=== PATIENT | female | born 1985 | race African-American/Black ===

== ENCOUNTER 2023-01-24 17:27 | Observation (INO) ==
--- NOTE | 2023-01-24 17:41 | ED Triage Note ---
Date of Service January 24, 2023 History of Present Illness This patient was briefly evaluated while in triage. An abbreviated physical exam was performed. This patient is a 37-year-old Female who presents to the ED for evaluation recently here for rash from Lamictal 01/20 taking Benadryl rash has spread, swelling in arms syncope, SOB and anorexia Physical Exam GENERAL: NAD CARDIOVASCULAR: RRR RESPIRATORY: CTA ABDOMEN: BS x 4. Nontender to palpation. SKIN:erythematous generalized rash Initial orders for labs and / or imaging were placed and patient was placed in the waiting area until a bed is available. Please see further documentation for the full ED course.
--- NOTE | 2023-01-24 18:09 | XRay Report ---
XR chest 1V not portable CLINICAL HISTORY: SOB, syncope TECHNIQUE: Single frontal radiograph of the chest was obtained. Comparison: None available at the time of this dictation. FINDINGS: No lines and tubes are seen. The cardiomediastinal silhouette is normal. The lungs are clear. No evid ence of pleural effusion or pneumothorax. IMPRESSION: No acute chest disease. ACT 112: Negative or not required by law. Electronically signed by: Ever Barnes M.D. 01/24/2023 6:08 PM
[2023-01-24 19:43] LABS: Hemoglobin 14.8 g/dl (12.0-16.0); Mean Corpuscular Hemoglobin 31.4 pg (25.0-34.0); Mean Corpuscular Hgb Conc 36.1 g/dL (32.0-36.0); Mean Corpuscular Volume 86.9 fL (80.0-100.0); Mean Platelet Volume 10.2 fL (9.4-12.4); Platelet Count 188 K/uL (130-400); RDW Coefficient of Variation 12.3 % (11.5-14.5); RDW Standard Deviation 39.2 fL (36.4-46.3); Red Blood Count 4.72 M/uL (4.20-5.40)
[2023-01-24 19:58] LABS: Pregnancy Test, Serum Negative (Negative)
[2023-01-24 20:06] LABS: Basophils # (auto) 0.04 K/uL (0.00-0.20); Basophils % (auto) 0.4 %; Eosinophils # (auto) 0.28 K/uL (0.00-0.50); Eosinophils % (auto) 3.1 %; Immature Granulocytes # (auto) 0.06 K/uL (0.01-0.20); Immature Granulocytes % (auto) 0.7 %; Lymphocytes # (auto) 1.35 K/uL (1.20-3.40); Lymphocytes % (auto) 15.2 %; Monocytes # (auto) 0.56 K/uL (0.11-0.59); Monocytes % (auto) 6.3 %; Neutrophils # (auto) 6.61 K/uL (1.40-6.50); Neutrophils % (auto) 74.3 %
[2023-01-24 20:16] LABS: Alanine Aminotransferase 448 U/L (7-52); BUN Creatinine Ratio 15.5 (10-20); Bilirubin,Total 1.2 mg/dl (0.2-1.0); Blood Urea Nitrogen 11 mg/dl (6-23); Calcium 8.2 mg/dl (8.6-10.3); Carbon Dioxide 21 mmol/L (21-32); Chloride 95 mmol/L (98-107); Creatine Kinase 185 U/L (26-192); Creatinine Clr Calc Pharmacy 117.7 ml/min; Est GFR (African American) 127.9 ml/min; Est GFR (Non-African American) 110.4 ml/min; Glucose 107 mg/dl (70-99(Fasting)); Thyroid Stimulating Hormone 2.454 uIu/ml (0.300-4.500); Total Protein 6.8 gm/dl (6.0-8.3)
[2023-01-24 20:27] LABS: Troponin I High Sensitivity 12.1 pg/ml (0-14)
--- NOTE | 2023-01-24 20:50 | Emergency Department Note ---
Impression & Plan Adverse reaction to drug, Rash, Transaminitis, Syncope ED Provider Note NAME: DIOGO WALTON AGE: 37 SEX: F : 1985 ARRIVES VIA: Walk-In INFORMANT: Patient, ED PROVIDER(S): Karl Sanabria MD CHIEF COMPLAINT: Rash MEDICAL DECISION MAKING: Patient presents due to concern for worsening rash and associated swelling of the bilateral upper extremities. This is in the setting of recently taking Lamictal which she stopped about a week ago. Next Patient is still have some itchiness. There is no current mucosal involvement and no skin sloughing. IV was established and blood was obtained patient did have ESR CRP coagulation studies as well as blood cultures. Patient was ordered IV fluids for tachycardia. Patient's daughter shows a normal white count H&H and platelet count. The patient's kidney function is unremarkable. Mild hypercalcemia at 8.2. Elevation in ALT at 448. Patient does not have evidence of any mucosal involvement but given the patient's rash and associated symptoms I did speak the on-call hospitalist service Dr. Bishop and the patient was admitted to the medicine service. Discussion w/ other healthcare providers: Dr. Bishop inpatient medicine service Prior /Outside records reviewed: none Differential diagnosis: Allergic reaction, anaphylaxis, urticaria, Smith-Peter syndrome, toxic epidermal necrolysis, erythema multiforme, contact dermatitis, cellulitis, as well as other pathologies. Diagnostics, as interpreted by me: ECG: Sinus tachycardia, rate of 139, normal intervals and axis. No ST elevations. Cardiac monitoring: An order was placed for continuous cardiac monitoring. The monitor shows a rate of 115 with tachycardic and regular rhythm. Patient was placed on pulse oximetry Medical decision rules: none Imaging studies: I informally interpreted the patient's with formal report to follow. HPI: Patient presents due to concern for rash. Patient states that she initially developed some rash in the bilateral upper extremities about a week ago was seen here and was advised to stop taking her Lamictal and was to continue Benadryl. Patient states that she had transition to Lamictal for about 1 month in duration for mood disorder and Zoloft was not helping. The patient had transition from 25-50 middle of the day that she developed a rash she had just taken 100 mg. The patient has not taken about for a week in duration. The patient states that since she was seen here in the emergency department she is had some worsening swelling and the rash has been more prevalent and coalesced. Patient did initially note that she had some associated sores in the mouth but these have since resolved. Patient denies any changes in creams detergents or anything in the diet. Patient denies any chest pains or shortness of breath. Patient also relates that she thinks she may have passed out this morning. No tongue biting or incontinence. PAST MEDICAL HISTORY: Bipolar disorder PAST SURGICAL HISTORY: No pertinent past surgical history SOCIAL HISTORY: See Below HOME MEDICATIONS: See Below ALLERGIES: See Below VITALS: See Below PHYSICAL EXAMINATION: GENERAL: NAD, non-toxic. Wearing glasses. EYE EXAM: Normal conjunctiva. PERRL, no anisocoria and EOM's grossly intact w/o pain. No chemosis. OROPHARYNX: Moist mucus membranes, grossly normal dentition. No oral lesions or sloughing of the oral mucosa NECK: Supple, no nuchal rigidity, no adenopathy, non-tender. No signs of meningismus. FROM of the neck with good chin to chest and neck extension. No stridor. LUNGS: Clear to auscultation. Normal chest wall mechanics. HEART: Tachycardic and regular, no MRG. ABDOMEN: Abdomen soft, non-tender, no masses, no rebound or guarding. BACK: No CVA TTP. SKIN: Diffuse macular confluence rash that does occasionally jaswinder, no obvious bullae or blistering, Nikolsky negative. UPPER EXTREMITIES: Upper extremities are grossly normal. LOWER EXTREMITIES: Grossly normal, no edema. NEURO EXAM: A&O x3, cranial nerves II-XII grossly intact, normal speech, moves all 4 extremities. Past Med/Surg History Social History Smoking Status: Former smoker Hx Alcohol Use: No Hx Substance Use: No Preferred Language: Azerbaijani Communication Ability: Effective Beliefs That Will Affect Care: None Current Living Situation: Alone Other Information That Helps Us Care for You: No Feels Safe at Home: Yes Safety Concerns: Feels Safe At This Time Assistive Devices: Apnea Monitor Allergies Allergies Allergy/AdvReac Type Severity Reaction Status Date / Time lamotrigine [From Lamictal] Allergy DRESS Verified 01/26/23 10:16 Home Meds Home Medications Medication Instructions Recorded Confirmed lamotrigine 100 mg tablet 100 mg PO QAM 01/24/23 01/24/23 quetiapine 25 mg tablet 25 mg PO HS 01/24/23 01/24/23 sertraline 50 mg tablet 50 mg PO QAM 01/24/23 01/24/23 Results & Data (ED) Vital Signs Vital Signs - 24 hr 01/24/23 17:38 Temperature 36.8 C Temperature Source Temporal Artery Scan Pulse Rate 138 H Respiratory Rate 18 Blood Pressure 120/81 Blood Pressure Mean 94 Pulse Oximetry 99 Oxygen Delivery Method Room Air Sepsis Recent Fever Within 48 Hours No Sepsis New/Unexplained Change in Mental Status No Sepsis Action Taken by Nursing No Action Required Home Medications Current Medication List: was personally reviewed by me Laboratory Data Attestation: I reviewed the patient's lab results. 01/28/23 04:52 01/28/23 04:52 Lab Results 01/24/23 01/24/23 01/24/23 Range/Units 19:17 21:06 21:07 WBC 8.90 (4.8-10.8) K/ul RBC 4.72 (4.20-5.40) M/uL Hgb 14.8 (12.0-16.0) g/dl Hct 41.0 (37.0-47.0) % MCV 86.9 (80.0-100.0) fL MCH 31.4 (25.0-34.0) pg MCHC 36.1 H (32.0-36.0) g/dL RDW Std Deviation 39.2 (36.4-46.3) fL RDW Coeff of Andrew 12.3 (11.5-14.5) % Plt Count 188 (130-400) K/uL MPV 10.2 (9.4-12.4) fL Immature Gran % (Auto) 0.7 % Neut % (Auto) 74.3 % Lymph % (Auto) 15.2 % [place] % (Auto) 6.3 % Eos % (Auto) 3.1 % Baso % (Auto) 0.4 % Neut # (Auto) 6.61 H (1.40-6.50) K/uL Lymph # (Auto) 1.35 (1.20-3.40) K/uL [place] # (Auto) 0.56 (0.11-0.59) K/uL Eos # (Auto) 0.28 (0.00-0.50) K/uL Baso # (Auto) 0.04 (0.00-0.20) K/uL Immature Gran # (Auto) 0.06 (0.01-0.20) K/uL ESR 18 (0-20) mm/hr PT 13.5 H (9.0-12.0) Seconds INR 1.2 H (0.9-1.1) APTT 31.5 H (21.0-31.0) Seconds PTT Ratio 1.1 Sodium TNP 127 L Potassium TNP 3.5 Chloride 95 L (98-107) mmol/L Carbon Dioxide 21 (21-32) mmol/L Anion Gap TNP BUN 11 (6-23) mg/dl Creatinine 0.71 (0.6-1.2) mg/dl Est Cr Clr Drug Dosing 117.7 ml/min Est GFR ( Amer) 127.9 ml/min Est GFR (Non-Af Amer) 110.4 ml/min BUN/Creatinine Ratio 15.5 (10-20) Glucose 107 H (70-99(Fasting)) mg/dl Lactate (0.4-2.0) mmol/L Calcium 8.2 L (8.6-10.3) mg/dl Total Bilirubin 1.2 H (0.2-1.0) mg/dl AST TNP 277 H ALT 448 H (7-52) U/L Alkaline Phosphatase TNP 71 Total Creatine Kinase 185 (26-192) U/L Troponin I High Sens 12.1 (0-14) pg/ml C-Reactive Protein 7.40 H (0-0.5) mg/dl Total Protein 6.8 (6.0-8.3) gm/dl Albumin TNP 3.4 Globulin TNP Albumin/Globulin Ratio TNP Procalcitonin 0.23 (0-0.5) ng/ml TSH 2.454 (0.300-4.500) uIu/ml HCG, Qual Negative (Negative) 01/24/23 Range/Units 22:56 WBC (4.8-10.8) K/ul RBC (4.20-5.40) M/uL Hgb (12.0-16.0) g/dl Hct (37.0-47.0) % MCV (80.0-100.0) fL MCH (25.0-34.0) pg MCHC (32.0-36.0) g/dL RDW Std Deviation (36.4-46.3) fL RDW Coeff of Andrew (11.5-14.5) % Plt Count (130-400) K/uL MPV (9.4-12.4) fL Immature Gran % (Auto) % Neut % (Auto) % Lymph % (Auto) % Kings[place] % (Auto) % Eos % (Auto) % Baso % (Auto) % Neut # (Auto) (1.40-6.50) K/uL Lymph # (Auto) (1.20-3.40) K/uL [place]bury # (Auto) (0.11-0.59) K/uL Eos # (Auto) (0.00-0.50) K/uL Baso # (Auto) (0.00-0.20) K/uL Immature Gran # (Auto) (0.01-0.20) K/uL ESR (0-20) mm/hr PT (9.0-12.0) Seconds INR (0.9-1.1) APTT (21.0-31.0) Seconds PTT Ratio Sodium Potassium Chloride (98-107) mmol/L Carbon Dioxide (21-32) mmol/L Anion Gap BUN (6-23) mg/dl Creatinine (0.6-1.2) mg/dl Est Cr Clr Drug Dosing ml/min Est GFR ( Amer) ml/min Est GFR (Non-Af Amer) ml/min BUN/Creatinine Ratio (10-20) Glucose (70-99(Fasting)) mg/dl Lactate 2.9 H* (0.4-2.0) mmol/L Calcium (8.6-10.3) mg/dl Total Bilirubin (0.2-1.0) mg/dl AST ALT (7-52) U/L Alkaline Phosphatase Total Creatine Kinase (26-192) U/L Troponin I High Sens (0-14) pg/ml C-Reactive Protein (0-0.5) mg/dl Total Protein (6.0-8.3) gm/dl Albumin Globulin Albumin/Globulin Ratio Procalcitonin (0-0.5) ng/ml TSH (0.300-4.500) uIu/ml HCG, Qual (Negative) Administered Medications Benzocaine (Benzocaine 20% (Orajel) 11.9 Gm Tube) 1 appln MT QID PRN PRN Reason: painful mouth sores Stop: 02/24/23 19:22 Last Admin: 01/25/23 20:17 Dose: 1 appln Documented By: ELROY Calcium Citrate (Calcium Citrate 950 Mg Tab) 950 mg PO PC ANITA Stop: 02/25/23 08:59 Last Admin: 01/28/23 13:01 Dose: 950 mg Documented By: Admin: 01/28/23 08:37 Dose: 950 mg Documented By: Admin: 01/27/23 17:15 Dose: 950 mg Documented By: Admin: 01/27/23 13:17 Dose: 950 mg Documented By: Admin: 01/27/23 08:44 Dose: 950 mg Documented By: Admin: 01/26/23 16:42 Dose: 950 mg Documented By: Admin: 01/26/23 13:41 Dose: 950 mg Documented By: Admin: 01/26/23 09:31 Dose: 950 mg Documented By: BETSY Heparin Sodium (Porcine) (Heparin Sod 5,000 Unit/0.5 Ml Vial) 5,000 units SQ Q12 ANITA Stop: 02/24/23 08:59 Last Admin: 01/28/23 08:37 Dose: 5,000 units Documented By: Admin: 01/27/23 20:16 Dose: 5,000 units Documented By: Admin: 01/27/23 09:34 Dose: 5,000 units Documented By: Admin: 01/26/23 20:41 Dose: 5,000 units Documented By: Admin: 01/26/23 09:31 Dose: 5,000 units Documented By: Admin: 01/25/23 20:17 Dose: 5,000 units Documented By: Admin: 01/25/23 07:57 Dose: 5,000 units Documented By: RADHA Methylprednisolone 80 mg/ (Syringe) 1.28 mls @ 1.5 mls/min IV DAILY ANITA Stop: 02/24/23 08:59 Last Admin: 01/28/23 08:38 Dose: 1.5 mls/min Documented By: Admin: 01/27/23 08:44 Dose: 1.5 mls/min Documented By: Admin: 01/26/23 09:31 Dose: 1.5 mls/min Documented By: Admin: 01/25/23 07:57 Dose: 1.5 mls/min Documented By: RADHA Magnesium Chloride (Magnesium Chloride W/Calcium 64mg Delayed Rel Tab) 64 mg PO BID ANITA Stop: 02/27/23 09:14 Last Admin: 01/28/23 09:34 Dose: 64 mg Documented By: RAFAELA Potassium Phosphate (Pot Phosphate Monobasic W/ Sod Tab) 2 tab PO QID ANITA Stop: 02/25/23 08:59 Last Admin: 01/28/23 13:01 Dose: 2 tab Documented By: Admin: 01/28/23 08:38 Dose: 2 tab Documented By: Admin: 01/27/23 20:31 Dose: 2 tab Documented By: Admin: 01/27/23 17:14 Dose: 2 tab Documented By: Admin: 01/27/23 13:17 Dose: 2 tab Documented By: Admin: 01/27/23 08:44 Dose: 2 tab Documented By: Admin: 01/26/23 20:34 Dose: 2 tab Documented By: Admin: 01/26/23 16:42 Dose: 2 tab Documented By: Admin: 01/26/23 13:42 Dose: 2 tab Documented By: Admin: 01/26/23 11:25 Dose: 2 tab Documented By: BETSY Sertraline HCl (Sertraline Hcl 50 Mg Tablet) 25 mg PO QAM [facility] Stop: 02/25/23 10:14 Last Admin: 01/28/23 08:36 Dose: 25 mg Documented By: Admin: 01/27/23 08:43 Dose: 25 mg Documented By: Admin: 01/26/23 11:25 Dose: 25 mg Documented By: BETSY Discontinued Medications Sodium Chloride (Nss) 1,000 mls @ 999 mls/hr IV .Q1H1M ONE Stop: 01/24/23 23:53 Last Infusion: 01/25/23 02:00 Dose: Infused Documented By: Admin: 01/24/23 23:00 Dose: 999 mls/hr Documented By: NICHOL Sodium Chloride (Nss) 500 mls @ 999 mls/hr IV .Q31M ONE Stop: 01/24/23 23:23 Last Infusion: 01/25/23 03:26 Dose: Infused Documented By: Infusion: 01/25/23 02:58 Dose: 999 mls/hr Documented By: Infusion: 01/25/23 02:20 Dose: 0 mls/hr Documented By: Admin: 01/25/23 02:17 Dose: 999 mls/hr Documented By: ELROY Sodium Chloride (Nss) 1,000 mls @ 125 mls/hr IV .Q8H ANITA Stop: 02/24/23 02:09 Last Infusion: 01/27/23 10:29 Dose: Infused Documented By: Admin: 01/27/23 08:45 Dose: 125 mls/hr Documented By: Infusion: 01/27/23 08:37 Dose: Infused Documented By: Admin: 01/27/23 00:37 Dose: 125 mls/hr Documented By: Infusion: 01/27/23 00:37 Dose: Infused Documented By: Admin: 01/26/23 16:41 Dose: 125 mls/hr Documented By: Infusion: 01/26/23 16:40 Dose: Infused Documented By: Admin: 01/26/23 08:34 Dose: 125 mls/hr Documented By: Infusion: 01/26/23 08:32 Dose: Infused Documented By: Admin: 01/26/23 00:15 Dose: 125 mls/hr Documented By: Infusion: 01/26/23 00:15 Dose: Infused Documented By: Admin: 01/25/23 16:36 Dose: 125 mls/hr Documented By: Infusion: 01/25/23 16:36 Dose: Infused Documented By: Admin: 01/25/23 09:42 Dose: 125 mls/hr Documented By: Infusion: 01/25/23 09:42 Dose: Infused Documented By: Admin: 01/25/23 03:25 Dose: 125 mls/hr Documented By: ELROY Magnesium Sulfate/Dextrose (Magnesium Sulfate / D5w) 1 gm in 100 mls @ 50 mls/hr IV Q2H ANITA Stop: 01/25/23 11:59 Last Infusion: 01/25/23 11:50 Dose: Infused Documented By: Admin: 01/25/23 09:42 Dose: 50 mls/hr Documented By: Infusion: 01/25/23 09:42 Dose: Infused Documented By: Admin: 01/25/23 08:00 Dose: 50 mls/hr Documented By: RADHA Potassium Phosphate 30 mmol/ (Sodium Chloride) 510 mls @ 88 mls/hr IV ONE ONE Stop: 01/26/23 13:32 Last Infusion: 01/26/23 16:29 Dose: Infused Documented By: Admin: 01/26/23 09:32 Dose: 88 mls/hr Documented By: BETSY Calcium Gluconate 1,000 mg/ (Sodium Chloride) 60 mls @ 240 mls/hr IV Q15M [facility] Stop: 01/27/23 09:14 Last Infusion: 01/27/23 11:45 Dose: Infused Documented By: Admin: 01/27/23 11:23 Dose: 240 mls/hr Documented By: Infusion: 01/27/23 11:23 Dose: Infused Documented By: Admin: 01/27/23 11:08 Dose: 240 mls/hr Documented By: RAFAELA Calcium Gluconate 1,000 mg/ (Sodium Chloride) 60 mls @ 240 mls/hr IV Q15M [facility] Stop: 01/28/23 09:59 Last Infusion: 01/28/23 11:23 Dose: Infused Documented By: Admin: 01/28/23 11:04 Dose: 240 mls/hr Documented By: Infusion: 01/28/23 11:03 Dose: Infused Documented By: Admin: 01/28/23 10:48 Dose: 240 mls/hr Documented By: RAFAELA Ioversol (Optiray 320 500ml) 98 ml IV ONCE ONE Stop: 01/28/23 10:44 Last Admin: 01/28/23 10:43 Dose: 98 ml Documented By: NENO Methylprednisolone (Methylprednisolone 125 Mg/2 Ml Vial) 80 mg IV NOW STA Stop: 01/25/23 00:39 Last Admin: 01/25/23 00:50 Dose: 80 mg Documented By: PARADISE Potassium Chloride (Potassium Chloride 20 Meq/15 Ml Udc) 40 meq PO NOW STA Stop: 01/27/23 08:38 Last Admin: 01/27/23 09:33 Dose: 40 meq Documented By: DLF Potassium Chloride (Potassium Chloride 20 Meq/15 Ml Udc) 40 meq PO NOW STA Stop: 01/28/23 09:07 Last Admin: 01/28/23 09:34 Dose: 40 meq Documented By: RAFAELA Imaging Data Radiologist's Impression: Chest X-Ray 01/24/23 17:41 XR chest 1V not portable CLINICAL HISTORY: SOB, syncope TECHNIQUE: Single frontal radiograph of the chest was obtained. Comparison: None available at the time of this dictation. FINDINGS: No lines and tubes are seen. The cardiomediastinal silhouette is normal. The lungs are clear. No evidence of pleural effusion or pneumothorax. IMPRESSION: No acute chest disease. ACT 112: Negative or not required by law. Electronically signed by: Ever Barnes M.D. 01/24/2023 6:08 PM Discharge Plan Visit Data Chief Complaint: Rash Stated Complaint: RASH BODY, EDEMA IN ARMS, FAINTING IN MORNING ED Provider: Karl Sanabria Discharge Problem: Adverse reaction to drug, Rash, Transaminitis, Syncope Patient Disposition: Admitted As Inpatient Discharge Instructions Interventions: ED Discharge Assessment Last Done: 01/25/23 01:31 Discharge Problem: Adverse reaction to drug Qualifiers: Encounter type: subsequent encounter Qualified Code(s): T50.905D - Adverse effect of unspecified drugs, medicaments and biological substances, subsequent encounter Syncope Qualifiers: Syncope type: unspecified Qualified Code(s): R55 - Syncope and collapse
[2023-01-24 21:46] LABS: Albumin Level 3.4 gm/dl (3.4-5.0); C Reactive Protein 7.4 mg/dl (0-0.5); Potassium 3.5 mmol/L (3.5-5.1)
[2023-01-24 22:15] LABS: INR 1.2 (0.9-1.1); Partial Thromboplastin Ratio 1.1; Partial Thromboplastin Time 31.5 Seconds (21.0-31.0); Prothrombin Time 13.5 Seconds (9.0-12.0)
[2023-01-24] MEDS ORDERED: SODIUM CHLORIDE 0.9% 1,000 ML IV ONE (22:53)
[2023-01-24] MEDS ORDERED: SODIUM CHLORIDE 0.9% 500 ML IV ONE (22:53)
[2023-01-25] MEDS ORDERED: methylPREDNISolone 125 MG/2 ML VIAL IV STA (00:38)
--- NOTE | 2023-01-25 00:43 | History & Physical Report ---
Date of Service January 25, 2023 Assessment & Plan (1) Adverse reaction to drug: Plan: 37-year-old female past med significant for bipolar 2 disorder, general anxiety disorder, PTSD, presents with diffuse skin rash. Patient states after starting Lamictal 1 month later developed rash and she stopped Lamictal about a week ago. Patient was in the ER on January 20 and was advised to take Benadryl. But the rash is getting progressively worse. Adverse reaction to drug Diffuse erythematous blanching rash involving most of the body Most likely from Lamictal Send pictures to dermatology on-call and discussed Possible Dress Dermatology recommended slow taper of prednisone starting at 80 mg over 3 weeks. To continue Benadryl. And to follow with PCP to check TSH in 1 to 2 months. Needs close monitor for now May need to readdress with Dermatology based on response. 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 Patient states after starting Lamictal 1 month later developed rash and she stopped Lamictal about a week ago. Patient was in the ER on January 20 and was advised to take Benadryl. But the rash is getting progressively worse. Her mouth canker ulcer resolved but she is having some painful swallowing now and because of difficulty swallowing she is not eating or drinking much. And now she has some edema in the hands. The rash is erythematous and blanching involving most of the body. Yesterday morning when she got up she felt dizzy and when she went to bathroom she passed out for a second did not eat her head and and it seemed to happen again today morning but this time she did not pass out .She is feeling little short of breath, no chest pain ,no nausea, no vomiting.She has pain in her arms and abdomen where there is is swelling. feeling hot where there is swelling.Urine is concentrated .Denies any headaches.Systolic Blood pressure was in the 80s when she came in and with the fluids blood pressure improved. Past medical history. As mentioned above Past surgical history. No surgical history on file Social history. No smoking. Alcohol socially. Medical marijuana. Family history. Mother has diabetes. Father has diabetes. Paternal grandm other had diabetes. Allergies Allergy/AdvReac Type Severity Reaction Status Date / Time No Known Allergies Allergy Verified 01/24/23 21:27 Home Medications Medication Instructions Recorded Confirmed Type lamotrigine 100 mg tablet 100 mg PO QAM 01/24/23 01/24/23 History quetiapine 25 mg tablet 25 mg PO HS 01/24/23 01/24/23 History sertraline 50 mg tablet 50 mg PO QAM 01/24/23 01/24/23 History Past Med/Surg History Social History Smoking Status: Former smoker Hx Alcohol Use: No Hx Substance Use: No Preferred Language: Indian Communication Ability: Effective Beliefs That Will Affect Care: None Current Living Situation: Alone Other Information That Helps Us Care for You: No Feels Safe at Home: Yes Safety Concerns: Feels Safe At This Time Review of Systems Review of Systems: All systems reviewed & are unremarkable except as noted in HPI & below Physical Exam Physical Exam: General- Not in distress Head- atraumatic Eyes- PERRL ENT- oropharynx clear Neck- supple, no JVD. Lungs- clear to auscultation no wheezing o crackles. Heart- regular rhythm; no murmur, no gallop. Abdomen- normal bowel sounds, soft, nontender, no distension Extremities- diffuse rash seen. Neuro- alert, oriented x 3; PERRL, no facial palsy; no dysarthria; moves extremities. Skin- Diffuse erythematous blanching rash involving most of the body. Results & Data Results & Data Vital Signs (Past 12 Hours) Vital Signs Temp Pulse Pulse Resp BP BP Pulse Ox 01/24/23 22:12 108 H 18 100 01/24/23 22:10 37.2 C 105 H 18 101/63 100 01/24/23 21:15 108 H 18 84/63 L 100 01/24/23 17:38 36.8 C 138 H 18 120/81 99 O2 Del Method 01/24/23 22:12 Room Air 01/24/23 22:10 Room Air 01/24/23 21:15 Room Air 01/24/23 17:38 Room Air Diagnostic Findings Laboratory Results WBC 8.90 K/ul (4.8-10.8) 01/24/23 19:17 RBC 4.72 M/uL (4.20-5.40) 01/24/23 19:17 Hgb 14.8 g/dl (12.0-16.0) 01/24/23 19:17 Hct 41.0 % (37.0-47.0) 01/24/23 19:17 MCV 86.9 fL (80.0-100.0) 01/24/23 19:17 MCH 31.4 pg (25.0-34.0) 01/24/23 19:17 MCHC 36.1 g/dL (32.0-36.0) H 01/24/23 19:17 RDW Std Deviation 39.2 fL (36.4-46.3) 01/24/23 19:17 RDW Coeff of Andrew 12.3 % (11.5-14.5) 01/24/23 19:17 Plt Count 188 K/uL (130-400) 01/24/23 19:17 MPV 10.2 fL (9.4-12.4) 01/24/23 19:17 Immature Gran % (Auto) 0.7 % 01/24/23 19:17 Neut % (Auto) 74.3 % 01/24/23 19:17 Lymph % (Auto) 15.2 % 01/24/23 19:17 Davis % (Auto) 6.3 % 01/24/23 19:17 Eos % (Auto) 3.1 % 01/24/23 19:17 Baso % (Auto) 0.4 % 01/24/23 19:17 Neut # (Auto) 6.61 K/uL (1.40-6.50) H 01/24/23 19:17 Lymph # (Auto) 1.35 K/uL (1.20-3.40) 01/24/23 19:17 Davis # (Auto) 0.56 K/uL (0.11-0.59) 01/24/23 19:17 Eos # (Auto) 0.28 K/uL (0.00-0.50) 01/24/23 19:17 Baso # (Auto) 0.04 K/uL (0.00-0.20) 01/24/23 19:17 Immature Gran # (Auto) 0.06 K/uL (0.01-0.20) 01/24/23 19:17 ESR 18 mm/hr (0-20) 01/24/23 19:17 PT 13.5 Seconds (9.0-12.0) H 01/24/23 21:07 INR 1.2 (0.9-1.1) H 01/24/23 21:07 APTT 31.5 Seconds (21.0-31.0) H 01/24/23 21:07 PTT Ratio 1.1 01/24/23 21:07 Sodium 127 mmol/L (136-145) L 01/24/23 21:06 Potassium 3.5 mmol/L (3.5-5.1) 01/24/23 21:06 Chloride 95 mmol/L (98-107) L 01/24/23 19:17 Carbon Dioxide 21 mmol/L (21-32) 01/24/23 19:17 Anion Gap TNP 01/24/23 19:17 BUN 11 mg/dl (6-23) 01/24/23 19:17 Creatinine 0.71 mg/dl (0.6-1.2) 01/24/23 19:17 Est Cr Clr Drug Dosing 117.7 ml/min 01/24/23 19:17 Est GFR ( Amer) 127.9 ml/min 01/24/23 19:17 Est GFR (Non-Af Amer) 110.4 ml/min 01/24/23 19:17 BUN/Creatinine Ratio 15.5 (10-20) 01/24/23 19:17 Glucose 107 mg/dl (70-99(Fasting)) H 01/24/23 19:17 Lactate 2.9 mmol/L (0.4-2.0) H* 01/24/23 22:56 Calcium 8.2 mg/dl (8.6-10.3) L 01/24/23 19:17 Total Bilirubin 1.2 mg/dl (0.2-1.0) H 01/24/23 19:17 AST 277 U/L (13-39) H 01/24/23 21:06 ALT 448 U/L (7-52) H 01/24/23 19:17 Alkaline Phosphatase 71 U/L (34-104) 01/24/23 21:06 Total Creatine Kinase 185 U/L (26-192) 01/24/23 19:17 Troponin I High Sens 12.1 pg/ml (0-14) 01/24/23 19:17 C-Reactive Protein 7.40 mg/dl (0-0.5) H 01/24/23 21:06 Total Protein 6.8 gm/dl (6.0-8.3) 01/24/23 19:17 Albumin 3.4 gm/dl (3.4-5.0) 01/24/23 21:06 Globulin TNP 01/24/23 19:17 Albumin/Globulin Ratio TNP 01/24/23 19:17 Procalcitonin 0.23 ng/ml (0-0.5) 01/24/23 21:07 TSH 2.454 uIu/ml (0.300-4.500) 01/24/23 19:17 HCG, Qual Negative (Negative) 01/24/23 19:17 Impressions Chest X-Ray 01/24/23 17:41 XR chest 1V not portable CLINICAL HISTORY: SOB, syncope TECHNIQUE: Single frontal radiograph of the chest was obtained. Comparison: None available at the time of this dictation. FINDINGS: No lines and tubes are seen. The cardiomediastinal silhouette is normal. The lungs are clear. No evidence of pleural effusion or pneumothorax. IMPRESSION: No acute chest disease. ACT 112: Negative or not required by law. Electronically signed by: Ever Barnes M.D. 01/24/2023 6:08 PM ECG Additional Comments: ECG sinus tachycardia rate of 139. Possible left atrial enlargement Code Status & VTE Plan VTE Prophylaxis Plan VTE Prophylaxis will be ordered: Yes
[2023-01-25] MEDS ORDERED: methylPREDNISolone 80 MG in SYRINGE 0 ML IV SCH (02:30)
[2023-01-25] MEDS: SODIUM CHLORIDE 0.9% 1,000 ML IV SCH ×3 (03:25→16:36)
[2023-01-25 04:44] LABS: Appearance Urine Cloudy (Clear); Bacteria Urine Automated Negative (Negative); Blood Urine Negative (Negative); Color Urine Dark Yellow; Glucose Urine UA Negative (Negative); Ketones Urine 2+ (Negative); Leukocyte Esterase Urine 1+ (Negative); Nitrite Urine Negative (Negative); Protein Urine Trace (Negative); Specific Gravity Urine 1.017 (1.000-1.030); Urobilinogen Urine Positive (Negative); pH Urine 6.5 (4.5-7.5)
[2023-01-25 04:53] LABS: Bilirubin Urine 1+ (Negative)
[2023-01-25 05:03] LABS: RBC Urine Automated 0-4 /hpf (0-4)
[2023-01-25 05:04] LABS: Mucus Urine Present (None Prsent); Renal Epithelial Cells Urine 0-5 /lpf (0-5)
[2023-01-25 05:49] LABS: BUN Creatinine Ratio 12.7 (10-20); Bilirubin Direct 0.3 mg/dl (0-0.2); Calcium 7.5 mg/dl (8.6-10.3); Creatinine Clr Calc Pharmacy 152.7 ml/min; Est GFR (African American) 140.8 ml/min; Est GFR (Non-African American) 121.5 ml/min; Magnesium 1.4 mg/dl (1.7-2.4); Potassium 3.6 mmol/L (3.5-5.1); Total Protein 5.5 gm/dl (6.0-8.3)
[2023-01-25 05:52] LABS: Hematocrit (blood only) 33.7 % (37.0-47.0); Hemoglobin 12.2 g/dl (12.0-16.0); Mean Corpuscular Hemoglobin 31.4 pg (25.0-34.0); Mean Corpuscular Hgb Conc 36.2 g/dL (32.0-36.0); Mean Corpuscular Volume 86.6 fL (80.0-100.0); Mean Platelet Volume 9.9 fL (9.4-12.4); Platelet Count 145 K/uL (130-400); RDW Standard Deviation 38.5 fL (36.4-46.3); Red Blood Count 3.89 M/uL (4.20-5.40); White Blood Count 6.51 K/ul (4.8-10.8)
[2023-01-25 05:55] LABS: INR 1.3 (0.9-1.1); Prothrombin Time 13.7 Seconds (9.0-12.0)
[2023-01-25 05:58] LABS: Troponin I High Sensitivity 16.3 pg/ml (0-14)
[2023-01-25 06:17] LABS: Basophils # (auto) 0.04 K/uL (0.00-0.20); Basophils % (auto) 0.6 %; Eosinophils # (auto) 0.14 K/uL (0.00-0.50); Eosinophils % (auto) 2.2 %; Immature Granulocytes # (auto) 0.04 K/uL (0.01-0.20); Immature Granulocytes % (auto) 0.6 %; Lymphocytes # (auto) 1.16 K/uL (1.20-3.40); Lymphocytes % (auto) 17.8 %; Monocytes % (auto) 3.1 %; Neutrophils # (auto) 4.93 K/uL (1.40-6.50); Neutrophils % (auto) 75.7 %
--- NOTE | 2023-01-25 07:16 | Communication Note ---
Date of Service: January 25, 2023 Pt seen in the AM. States that this rash all started about a week ago after starting Lamictal. Notes she has been having trouble swallowing as well, tolerating clear fluids well, states it feels soothing to her nouth where she previously had blisters and sores. feels like her mouth might still be swollen and feels like she might not yet be able to tolerate solids. Advanced to full liquids from clear liquids. Notes that she had pain where she has swelling, particularly in her arms bilaterally. She does note some improvement in the swelling since she has been here, particularly in her hands. Continue with IV methylpred with goal of tapering over the next 3 weeks. Continue to monitor.
[2023-01-25] MEDS: HEPARIN SOD 5,000 UNIT/0.5 ML VIAL SQ SCH ×2 (07:57→20:17)
[2023-01-25] MEDS: methylPREDNISolone 80 MG in SYRINGE 0 ML IV SCH (07:57)
[2023-01-25] MEDS: MAGNESIUM SULFATE / D5W 1 GM/100 ML BAG IV SCH ×2 (08:00→09:42)
--- NOTE | 2023-01-25 08:03 | Ultrasound Report ---
US liver CLINICAL HISTORY: elevated lft TECHNIQUE: Multiple real-time sonographic images of the right upper quadrant were obtained. Comparison: None available at the time of this dictation. FINDINGS: The liver is diffusely homogenous with normal contour and echogenicity. Multiple cysts are seen in th e right lobe. Centrilobular pattern of the liver is seen. No intrahepatic ductal dilatation is seen. No gallstones or sludge are identified within the gallbladder. The gallbladder wall is not thickene d. There is no pericholecystic fluid present. A sonographic Gomez's sign was not elicited by the son ographer. The common duct measures 0.4 cm in diameter at the level of the hepatic artery. The dist al pancreas is not visualized due to overlying bowel gas. The visualized portions of the pancreas ar e unremarkable. The right kidney shows normal echogenicity, cortical thickness and renal contour. Questionable mild h ydronephrosis is seen with mildly echogenic appearing kidney. No ascites or free fluid is seen in Blanc's pouch. IMPRESSION: Satisfactory appearance of the liver is nonspecific and may be seen with hepatitis including drug-ind uced hepatitis ACT 112: Negative or not required by law. Electronically signed by: Ever Barnes M.D. 01/25/2023 8:01 AM
--- NOTE | 2023-01-25 08:43 | Electrocardiogram Report ---
Test Reason : Blood Pressure : / mmHG Vent. Rate : 139 BPM Atrial Rate : 139 BPM P-R Int : 126 ms QRS Dur : 056 ms QT Int : 278 ms P-R-T Axes : 082 061 067 degrees QTc Int : 423 ms Sinus tachycardia Borderline ECG No previous ECGs available Confirmed by Ish Elizabeth ([id number]) on 01/25/2023 8:43:15 AM Referred By: REFERRED SELF Confirmed By:Ish Elizabeth
[2023-01-25] MEDS ORDERED: methylPREDNISolone 125 MG/2 ML VIAL IV SCH (09:00)
--- NOTE | 2023-01-25 10:00 | Cardiology Consultation ---
Date of Consultation January 25, 2023 Assessment & Plan (1) Rash: (2) Adverse reaction to drug: (3) Elevated troponin: (4) Syncope: Supervising Physician Co-Signing Physician Notes Attending Staff: Pt seen and examined with [facility] staff Concur with observations and plans 37 yo woman presenting with rash + difficulty swallowing Cardiology Consult for Syncope * BiPolar * Generalized Anxiety * PTSD * Rx Lamictal 12/18/2022 * Presented on 01/20/2023 - rash * Potential drug reaction - Rx with Benadryl * Progressive rash + Poor PO intake * 2 brief syncopal episodes * Poor PO intake * On ambulation to Bathroom - very brief LOC. * No seizure activity reported; no post ictal state * No trauma reported * EKG - No ischemic changes - QTC 425, No 1st degree AVB. No pre-excitation or Brugada's noted * CXR: small cardiac sihouette (no known Mars's) * Troponin - 12, 16, 11. * ECHO: LVEF 60-65%, RV normal size and function, No significant valvular pathology, no effusion * On telemetry Plans: * Syncopal event * Normal QT * No major bradycardia * Normal LV * No RV dilation * Troponin - 2/3 negative; one value marginally elevated * No HCM * No * No hypereosinophilia noted * Suspect dehydration may have played a major role * + orthostatic sx preceded syncope * TOX screen for completeness * Agree with hydration * Impressive skin findings - treated with steroids * Continue Telemetry -if no atrial or ventricular tachy/jennifer arrhythmias post 48 hrs - may stop Telemetry * K+ goal 4.5-5 * Mag goal >2 * TSH 2.4 * Please call back with any additional questions Gilberto Boo History of Present Illness Reason for Consultation: Syncope Requesting Physician: Dr. Bishop Attending Physician: Dr. Amato History of Present Illness 37 year old female History of bipolar II, KIRILL and PTSD Prescribed Lamictal on 12/18/2022 Seen in the [facility] ER due to a rash and advised to take Benadryl. Returned to [facility] on 01/24/2023 due to progression of the rash and difficulty swallowing, poor PO intake noted. Experienced brief syncope episodes yesterday morning and again the AM of admission after positional change, preceding dizziness. Admitted with a diffuse skin rash attributed to Lamictal, adverse drug reaction Dermatology raised concern for DRESS (drug reaction with eosinophilia and system symptoms). Slow prednisone taper prescribed along with Benadryl. Cardiology consultation requested due to syncope and DRESS. UpToDate notes "clinical presentations include hypotension, tachycardia, dyspnea, and/or chest pain associated with left ventricular dysfunction and electrocardiogram changes. Cardiac involvement can be categorized into hypersensitivity myocarditis (which may be asymptomatic or associated with nonspecific symptoms and carries a better prognosis) and acute, necrotizing, eosinophilic myocarditis (which is the most severe form and is associated with over 50 percent mortality). Definitive diagnosis is based on endomyocardial biopsy." BP 84/63 on presentation, improved following fluid administration EKG revealed sinus tachycardia at 139 bpm. Telemetry: Sinus/sinus tachycardia with heart rates currently in the 90s Troponin: 12.1 -> 16.3 pg/mL TTE: Pending Past Medical and Surgical History: Bipolar 2 disorder General anxiety disorder PTSD Family History. Mother has diabetes. Father has diabetes. Paternal grandmother had diabetes. Social History. No smoking. Alcohol socially. Medical marijuana. Allergies Allergy/AdvReac Type Severity Reaction Status Date / Time No Known Allergies Allergy Verified 01/24/23 21:27 Home Medications Medication Instructions Recorded Confirmed Type lamotrigine 100 mg tablet 100 mg PO QAM 01/24/23 01/24/23 History quetiapine 25 mg tablet 25 mg PO HS 01/24/23 01/24/23 History sertraline 50 mg tablet 50 mg PO QAM 01/24/23 01/24/23 History Patient History Social History Smoking Status: Former smoker Hx Alcohol Use: No Hx Substance Use: No Preferred Language: Vincentian Communication Ability: Effective Beliefs That Will Affect Care: None Current Living Situation: Alone Other Information That Helps Us Care for You: No Feels Safe at Home: Yes Safety Concerns: Feels Safe At This Time Assistive Devices: Apnea Monitor Review of Systems Review of Systems: Complete Review of Systems is as stated above, negative, or noncontributory. Physical Exam Physical Exam: Diffuse erythmatous nonblanching raised erruption throughout No elevation in JVP S1S2 soft 2/6 systolic murmur CTA B No c/c/e Warm and perfused Results & Data Vital Signs (Past 12 Hours) Vital Signs Temp Pulse Pulse Resp BP BP Pulse Ox 01/25/23 07:48 36.5 C 94 H 99 H 93/59 L 94 01/25/23 02:10 01/25/23 02:10 37.4 C 107 H 18 125/65 100 01/25/23 02:08 103 H 01/25/23 01:31 106 H 15 115/64 100 01/24/23 22:12 108 H 18 100 01/24/23 22:10 37.2 C 105 H 18 101/63 100 O2 Del Method O2 Del Method 01/25/23 07:48 Room Air 01/25/23 02:10 Room Air 01/25/23 02:10 Room Air 01/25/23 02:08 01/25/23 01:31 Room Air 01/24/23 22:12 Room Air 01/24/23 22:10 Room Air Laboratory Results Cardiac Enzymes 01/24/23 01/24/23 01/25/23 Range/Units 19:17 21:06 05:18 AST TNP 277 H 199 H Troponin I High Sens 12.1 16.3 H D (0-14) pg/ml Coagulation 01/24/23 01/25/23 Range/Units 21:07 05:18 PT 13.5 H 13.7 H (9.0-12.0) Seconds APTT 31.5 H (21.0-31.0) Seconds CBC 01/24/23 01/25/23 Range/Units 19:17 05:18 WBC 8.90 6.51 (4.8-10.8) K/ul RBC 4.72 3.89 L (4.20-5.40) M/uL Hgb 14.8 12.2 (12.0-16.0) g/dl Hct 41.0 33.7 L (37.0-47.0) % Plt Count 188 145 (130-400) K/uL Neut # (Auto) 6.61 H 4.93 (1.40-6.50) K/uL Lymph # (Auto) 1.35 1.16 L (1.20-3.40) K/uL Woodson # (Auto) 0.56 0.20 (0.11-0.59) K/uL Eos # (Auto) 0.28 0.14 (0.00-0.50) K/uL Baso # (Auto) 0.04 0.04 (0.00-0.20) K/uL Comprehensive Metabolic Panel 01/24/23 01/24/23 01/25/23 Range/Units 19:17 21:06 05:18 Sodium TNP 127 L 131 L Potassium TNP 3.5 3.6 Chloride 95 L 100 (98-107) mmol/L Carbon Dioxide 21 21 (21-32) mmol/L BUN 11 7 (6-23) mg/dl Creatinine 0.71 0.55 L (0.6-1.2) mg/dl Glucose 107 H 113 H (70-99(Fasting)) mg/dl Calcium 8.2 L 7.5 L (8.6-10.3) mg/dl Direct Bilirubin 0.3 H (0-0.2) mg/dl AST TNP 277 H 199 H ALT 448 H 332 H (7-52) U/L Alkaline Phosphatase TNP 71 61 Total Protein 6.8 5.5 L (6.0-8.3) gm/dl Albumin TNP 3.4 3.0 L Intake and Output 01/24/23 01/25/23 01/25/23 22:59 06:59 14:59 Intake Total 1800.00 / 1800.00 870.417 / 870.417 Output Total 300 / 300 Balance 1500.00 / 1500.00 870.417 / 870.417 Intake: IV 1500.00 / 1500.00 870.417 / 870.417 Magnesium Sulfate / D5w 1 gm In 85 / 85 100 ml @ 50 mls/hr IV Q2H ANITA Rx#:[id number] Sodium Chloride 0.9% 1,000 ml @ 1500.00 / 1500.00 785.417 / 785.417 125 mls/hr IV .Q8H ANITA Rx#: [id number] Oral 300 / 300 Output: Urine 300 / 300 Other: # Unmeasured Voids 1 Weight 76.1 kg 77 kg Weight Measurement Method Chair Scale Built in Bedscale Medications Administered Current Inpatient Medications Heparin Sodium (Porcine) (Heparin Sod 5,000 Unit/0.5 Ml Vial) 5,000 units SQ Q12 ANITA Stop: 02/24/23 08:59 Last Admin: 01/25/23 07:57 Dose: 5,000 units Sodium Chloride (Nss) 1,000 mls @ 125 mls/hr IV .Q8H ANITA Stop: 02/24/23 02:09 Last Admin: 01/25/23 09:42 Dose: 125 mls/hr Methylprednisolone 80 mg/ (Syringe) 1.28 mls @ 1.5 mls/min IV DAILY [facility] Stop: 02/24/23 08:59 Last Admin: 01/25/23 07:57 Dose: 1.5 mls/min (4) Syncope Syncope type: unspecified Qualified Code(s): R55 - Syncope and collapse
--- NOTE | 2023-01-25 11:03 | Communication Note ---
Date of Service: January 25, 2023 Discussed with [facility] insolvency practitioner last night Jeremie Brady. Thanks
[2023-01-25] MEDS ORDERED: BENZOCAINE 20% (ORAJEL) 11.9 GM TUBE MT PRN (19:23)
[2023-01-26] MEDS: SODIUM CHLORIDE 0.9% 1,000 ML IV SCH ×3 (00:15→16:41)
[2023-01-26 06:17] LABS: Hematocrit (blood only) 30.5 % (37.0-47.0); Hemoglobin 10.8 g/dl (12.0-16.0); Mean Corpuscular Hemoglobin 31.7 pg (25.0-34.0); Mean Corpuscular Hgb Conc 35.4 g/dL (32.0-36.0); Mean Corpuscular Volume 89.4 fL (80.0-100.0); Mean Platelet Volume 9.9 fL (9.4-12.4); Platelet Count 150 K/uL (130-400); RDW Coefficient of Variation 12.3 % (11.5-14.5); RDW Standard Deviation 40.2 fL (36.4-46.3); Red Blood Count 3.41 M/uL (4.20-5.40); White Blood Count 9.11 K/ul (4.8-10.8)
[2023-01-26 07:13] LABS: Albumin Globulin Ratio 1.2 (0.9-2); Albumin Level 2.7 gm/dl (3.4-5.0); BUN Creatinine Ratio 6.3 (10-20); Bilirubin,Total 0.6 mg/dl (0.2-1.0); Calcium 7.5 mg/dl (8.6-10.3); Creatinine Clr Calc Pharmacy 178.2 ml/min; Est GFR (African American) 147.3 ml/min; Est GFR (Non-African American) 127.1 ml/min; Globulin 2.3 gm/dl (2.5-4.0); Magnesium 2.2 mg/dl (1.7-2.4); Potassium 3.5 mmol/L (3.5-5.1)
[2023-01-26 07:33] LABS: Basophils # (auto) 0.09 K/uL (0.00-0.20); Echinocytes 1+; Eosinophils # (auto) 0.56 K/uL (0.00-0.50); Eosinophils % (auto) 6.1 %; Immature Granulocytes # (auto) 0.06 K/uL (0.01-0.20); Immature Granulocytes % (auto) 0.7 %; Lymphocytes # (auto) 2.81 K/uL (1.20-3.40); Lymphocytes % (auto) 30.8 %; Monocytes # (auto) 1.17 K/uL (0.11-0.59); Monocytes % (auto) 12.8 %; Neutrophils # (auto) 4.42 K/uL (1.40-6.50); Neutrophils % (auto) 48.6 %; Polychromasia 1+
[2023-01-26] MEDS ORDERED: POTASSIUM PHOS 3 MMOL/1 ML INFUSION IV STA (07:33)
[2023-01-26] MEDS ORDERED: POTASSIUM PHOSPHATE 30 MMOL in SODIUM CHLORIDE 0.9% 500 ML IV ONE (07:45)
--- NOTE | 2023-01-26 08:47 | Electrocardiogram Report ---
Test Reason : Blood Pressure : / mmHG Vent. Rate : 077 BPM Atrial Rate : 077 BPM P-R Int : 160 ms QRS Dur : 070 ms QT Int : 410 ms P-R-T Axes : 054 065 050 degrees QTc Int : 463 ms Normal sinus rhythm Normal ECG When compared with ECG of 25-JAN-2023 05:22, No significant change was found Confirmed by Ish Elizabeth ([id number]) on 01/26/2023 8:47:17 AM Referred By: REFERRED SELF Confirmed By:Ish Elizabeth
[2023-01-26] MEDS: CALCIUM CITRATE 950 MG TAB PO SCH ×3 (09:31→16:42)
[2023-01-26] MEDS: HEPARIN SOD 5,000 UNIT/0.5 ML VIAL SQ SCH ×2 (09:31→20:41)
[2023-01-26] MEDS: methylPREDNISolone 80 MG in SYRINGE 0 ML IV SCH (09:31)
[2023-01-26] MEDS: SERTRALINE HCL 50 MG TABLET PO SCH (11:25)
[2023-01-26] MEDS: POT PHOSPHATE MONOBASIC W/ SOD TAB PO SCH ×4 (11:25→20:34)
--- NOTE | 2023-01-26 11:51 | Hospitalist Progress Note ---
Date of Service January 26, 2023 Assessment & Plan (1) Adverse reaction to drug: Plan: 37-year-old female past med significant for bipolar 2 disorder, general anxiety disorder, PTSD, presents with diffuse skin rash. Patient states after starting Lamictal 1 month later developed rash and she stopped Lamictal about a week ago. Patient was in the ER on January 20 and was advised to take Benadryl. But the rash is getting progressively worse. Adverse reaction to drug DRESS Diffuse erythematous blanching rash involving most of the body Most likely from Lamictal Dermatology recommended slow taper of prednisone starting at 80 mg over 3 weeks. To continue Benadryl. And to follow with PCP to check TSH in 1 to 2 months. Given recurrent hand swelling and persistent electrolyte abnormalities, will continue to monitor overnight. May need to readdress with Dermatology based on response. 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 Notes that her hands were swelling once more again. States orajel helped her mouth tolerating the full liwuids but just did not like cream of wheat for breakfast so went back to clears. States now itchy in certain spots. Otherwise denies acute concerns. Review of Systems Review of Systems: All systems reviewed & are unremarkable except as noted in Subjective Physical Exam Physical Exam: General: Alert, oriented. No acute distress Skin: diffuse maculopapular eruption noted on back, legs, anterior chest, hands Psych: Appropriate mood and affect Neuro: No gross deficits HEENT: NC/AT Chest: Nontender to palpation. CV: RRR, Normal s1, s2. No murmurs appreciated Resp: Breath sounds clear bilaterally, no increased effort of breathing. No crackles/rhonchi/rales. Abdomen: Soft, nontender, nondistended. No guarding. No organomegaly appreciated. Extremities: Some edema in hands bilaterally. Results & Data Results & Data Vital Signs (Past 12 Hours) Vital Signs Temp Pulse Resp BP BP Pulse Ox O2 Del Method 01/26/23 08:11 36.5 C 71 18 102/65 100 Room Air 01/26/23 04:57 107/61 01/26/23 03:21 36.4 C L 83 15 87/51 L 100 Room Air
--- NOTE | 2023-01-26 12:56 | Cardiology Progress Note ---
Date of Service January 26, 2023 Assessment & Plan (1) Rash: (2) Adverse reaction to drug: (3) Elevated troponin: (4) Syncope: Plan Admission with an adverse drug reaction mostly likely from Lamictal Syncopal event. Suspect hypotension secondary to volume depletion. BP improved following fluid administration. EKG OK, including QTc. Telemetry benign, revealing rhythm throughout with heart rates predominately in the 70's and 80's. Echo on 01/25/2023 with normal LV and RV function, LVEF 60-65%, no significant valvular pathology. General measures advised/discussed. Please contact with any questions or concerns. Admission and Anticipated Discharge Date Admission Date: January 25, 2023 Supervising Physician Co-Signing Physician Notes Patient seen examined the bedside. Denies lightheadedness, dizziness, syncope, or near syncope. No chest discomfort or shortness of breath. Telemetry reveals sinus rhythm in the 80s. PE: VSS. Gen: NAD, AAOx3. Heart: Regular rhythm, normal S1-S2. No murmur. Lungs: Clear bilateral, no rales, rhonchi, wheeze. Extremities: No edema. + Diffuse rash. A/P: Agree with above PA-C history, physical exam, assessment and plan. Telemetry without dysrhythmia. No evidence of structural heart disease. No further inpatient cardiology testing or intervention recommended at this time. Encourage hydration and electrolyte replacement. Cardiology will sign off. Please call with additional concerns/question. Subjective Patient seen and examined. Chart, medications, and telemetry reviewed. Receiving fluids, electrolyte replacement, methylprednisolone. Patient has been ambulatory in the room without lightheadedness, dizziness, or near syncope Maybe some improvement today as compared to yesterday in regards to the rash No trouble swallowing, shortness of breath, chest pain, or palpitations Review of Systems Review of Systems: Complete Review of Systems is as stated above, negative, or noncontributory. Physical Exam Physical Exam: General: A&Ox3. NAD. Skin: Impressive diffuse erythematous raised rash consistent with drug reaction HENT: Normocephalic. Atraumatic. Eyes: PER. Conjunctiva pink, sclera clear. Neck: No JVD. Heart: RRR, 80 bpm. No murmur. No rub. Lungs: Clear to auscultation. Abdomen: +BS. Extremities: + Upper extremity edema. No cyanosis. Limited neurological examination is without focal deficits. Results & Data Vital Signs (Past 12 Hours) Vital Signs Temp Pulse Resp BP BP Pulse Ox O2 Del Method 01/26/23 08:11 36.5 C 71 18 102/65 100 Room Air 01/26/23 04:57 107/61 01/26/23 03:21 36.4 C L 83 15 87/51 L 100 Room Air Laboratory Results Cardiac Enzymes 01/26/23 Range/Units 05:41 AST 114 H (13-39) U/L CBC 01/26/23 Range/Units 05:41 WBC 9.11 (4.8-10.8) K/ul RBC 3.41 L (4.20-5.40) M/uL Hgb 10.8 L (12.0-16.0) g/dl Hct 30.5 L (37.0-47.0) % Plt Count 150 (130-400) K/uL Neut # (Auto) 4.42 (1.40-6.50) K/uL Lymph # (Auto) 2.81 (1.20-3.40) K/uL [place] # (Auto) 1.17 H (0.11-0.59) K/uL Eos # (Auto) 0.56 H (0.00-0.50) K/uL Baso # (Auto) 0.09 (0.00-0.20) K/uL Comprehensive Metabolic Panel 01/26/23 Range/Units 05:41 Sodium 141 D (136-145) mmol/L Potassium 3.5 (3.5-5.1) mmol/L Chloride 112 H (98-107) mmol/L Carbon Dioxide 25 (21-32) mmol/L BUN 3 L (6-23) mg/dl Creatinine 0.48 L (0.6-1.2) mg/dl Glucose 104 H (70-99(Fasting)) mg/dl Calcium 7.5 L (8.6-10.3) mg/dl AST 114 H (13-39) U/L ALT 237 H (7-52) U/L Alkaline Phosphatase 55 (34-104) U/L Total Protein 5.0 L (6.0-8.3) gm/dl Albumin 2.7 L (3.4-5.0) gm/dl Intake and Output 01/25/23 01/26/23 01/26/23 22:59 06:59 14:59 Intake Total 1342.5 / 3749.167 1436.25 / 3749.167 1000 / 1000 Balance 1342.5 / 3748.167 1436.25 / 3748.167 1000 / 1000 Intake: IV 862.5 / 2789.167 956.25 / 2789.167 1000 / 1000 Sodium Chloride 0.9% 1,000 ml @ 862.5 / 2604.167 956.25 / 2604.167 1000 / 1000 125 mls/hr IV .Q8H [facility] Rx#: [id number] Oral 480 / 960 480 / 960 Other: # Unmeasured Voids 2 2 Weight 80.1 kg Weight Measurement Method Built in [facility] (4) Syncope Syncope type: unspecified Qualified Code(s): R55 - Syncope and collapse
--- NOTE | 2023-01-26 15:28 | Electrocardiogram Report ---
Test Reason : Blood Pressure : / mmHG Vent. Rate : 097 BPM Atrial Rate : 097 BPM P-R Int : 144 ms QRS Dur : 074 ms QT Int : 378 ms P-R-T Axes : 062 058 050 degrees QTc Int : 480 ms Poor data quality, interpretation may be adversely affected Normal sinus rhythm Normal ECG When compared with ECG of 24-JAN-2023 19:19, HR has decreased by 42 bpm Otherwise no significant change Confirmed by Ish Elizabeth ([id number]) on 01/26/2023 3:27:43 PM Referred By: REFERRED SELF Confirmed By:Ish Elizabeth
[2023-01-27] MEDS: SODIUM CHLORIDE 0.9% 1,000 ML IV SCH ×2 (00:37→08:45)
[2023-01-27 05:09] LABS: Hematocrit (blood only) 28.5 % (37.0-47.0); Mean Corpuscular Hemoglobin 31.7 pg (25.0-34.0); Mean Corpuscular Hgb Conc 35.1 g/dL (32.0-36.0); Mean Corpuscular Volume 90.5 fL (80.0-100.0); Mean Platelet Volume 9.2 fL (9.4-12.4); Platelet Count 153 K/uL (130-400); RDW Coefficient of Variation 12.9 % (11.5-14.5); RDW Standard Deviation 42.2 fL (36.4-46.3); Red Blood Count 3.15 M/uL (4.20-5.40); White Blood Count 8.11 K/ul (4.8-10.8)
[2023-01-27 06:12] LABS: Basophils # (auto) 0.07 K/uL (0.00-0.20); Basophils % (auto) 0.9 %; Eosinophils # (auto) 0.65 K/uL (0.00-0.50); Immature Granulocytes # (auto) 0.07 K/uL (0.01-0.20); Immature Granulocytes % (auto) 0.9 %; Lymphocytes # (auto) 3.56 K/uL (1.20-3.40); Lymphocytes % (auto) 43.9 %; Monocytes % (auto) 9.9 %; Neutrophils # (auto) 2.96 K/uL (1.40-6.50); Neutrophils % (auto) 36.4 %; RBC Morphology Unremarkable
[2023-01-27 07:11] LABS: Anion Gap 6 (3-11); Carbon Dioxide 23 mmol/L (21-32); Chloride 112 mmol/L (98-107); Potassium 3.1 mmol/L (3.5-5.1); Sodium 141 mmol/L (136-145)
[2023-01-27 07:12] LABS: Alanine Aminotransferase 247 U/L (7-52); Aspartate Aminotransferase 147 U/L (13-39); BUN Creatinine Ratio 4.4 (10-20); Bilirubin,Total 0.7 mg/dl (0.2-1.0); Blood Urea Nitrogen 2 mg/dl (6-23); Calcium 7.3 mg/dl (8.6-10.3); Creatinine Clr Calc Pharmacy 196.1 ml/min; Est GFR (African American) > 150.0; Est GFR (Non-African American) 129.8; Glucose 84 mg/dl (70-99(Fasting)); Magnesium 1.8 mg/dl (1.7-2.4); Phosphorus 2.8 mg/dl (2.5-4.9); Total Protein 5.1 gm/dl (6.0-8.3)
[2023-01-27 07:13] LABS: Albumin Globulin Ratio 1.2 (0.9-2); Albumin Level 2.8 gm/dl (3.4-5.0); Alkaline Phosphatase 61 U/L (34-104); Globulin 2.3 gm/dl (2.5-4.0)
[2023-01-27] MEDS ORDERED: STAT IV/IM STA (08:37)
[2023-01-27] MEDS ORDERED: POTASSIUM CHLORIDE 20 MEQ/15 ML UDC PO STA (08:37)
[2023-01-27] MEDS: SERTRALINE HCL 50 MG TABLET PO SCH (08:43)
[2023-01-27] MEDS: POT PHOSPHATE MONOBASIC W/ SOD TAB PO SCH ×4 (08:44→20:31)
[2023-01-27] MEDS: methylPREDNISolone 80 MG in SYRINGE 0 ML IV SCH (08:44)
[2023-01-27] MEDS: CALCIUM CITRATE 950 MG TAB PO SCH ×3 (08:44→17:15)
[2023-01-27] MEDS: HEPARIN SOD 5,000 UNIT/0.5 ML VIAL SQ SCH ×2 (09:34→20:16)
[2023-01-27] MEDS: CALCIUM GLUCONATE 10% 1,000 MG in SODIUM CHLOR 0.9% MINI-B 50 ML IV SCH ×2 (11:08→11:23)
--- NOTE | 2023-01-27 14:51 | Hospitalist Progress Note ---
Date of Service January 27, 2023 Assessment & Plan (1) Adverse reaction to drug: Plan: 37-year-old female past med significant for bipolar 2 disorder, general anxiety disorder, PTSD, presents with diffuse skin rash. Patient states after starting Lamictal 1 month later developed rash and she stopped Lamictal about a week ago. Progressive rash suggestive of DRESS. Adverse reaction to drug DRESS Diffuse erythematous blanching rash involving most of the body Most likely from Lamictal Dermatology recommended slow taper of prednisone starting at 80 mg over 3 weeks. 01/27- Dermatology contacted once more. Spoke to Dr. Savage. -Recommended the steroid taper previously advised, noted it can actually take months of treatment sometimes for DRESS to resolve. -Advised to keep an eye on the other organ systems- thyroid with TSH, cardiac with EKGs, Liver and kidney function tests -And to follow with PCP to check TSH in 1 to 2 months. 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 Notes that her hand swelling was improving, but left arm more swollen than the right. Overall swelling improving. Also notes that body rash looks less angry. Mouth still feels sore. States she ate eggs today and tolerated that well. Spoke to Dermatology Dr. Savage in the AM discussing the case. Recommended the Steroid taper, noted it can actually take months sometimes for DRESS to resolve. Advised to keep an eye on the other organ systems- cardiac with EKGs, Liver and kidneys Review of Systems Review of Systems: All systems reviewed & are unremarkable except as noted in Subjective Physical Exam Physical Exam: General: Alert, oriented. No acute distress Skin: diffuse maculopapular eruption noted on back, legs, anterior chest, hands Psych: Appropriate mood and affect Neuro: No gross deficits HEENT: NC/AT, noted swelling around mouth Chest: Nontender to palpation. CV: RRR, Normal s1, s2. No murmurs appreciated Resp: Breath sounds clear bilaterally, no increased effort of breathing. No cr ackles/rhonchi/rales. Abdomen: Soft, nontender, nondistended. No guarding. No organomegaly appreciated. Extremities: Some edema in hands bilaterally. Results & Data Results & Data Vital Signs (Past 12 Hours) Vital Signs Temp Pulse Pulse Resp BP BP Pulse Ox 01/27/23 12:42 36.9 C 79 18 114/72 99 01/27/23 10:00 75 01/27/23 07:32 36.8 C 88 18 104/68 99 01/27/23 03:06 36.5 C 90 18 112/70 99 O2 Del Method 01/27/23 12:42 Room Air 01/27/23 10:00 01/27/23 07:32 Room Air 01/27/23 03:06 Room Air
[2023-01-28 05:35] LABS: Hematocrit (blood only) 29.7 % (37.0-47.0); Hemoglobin 10.4 g/dl (12.0-16.0); Mean Corpuscular Hemoglobin 31.7 pg (25.0-34.0); Mean Corpuscular Volume 90.5 fL (80.0-100.0); Nucleated RBC # (auto) 0.04 K/uL (0.00-0.12); Nucleated RBC % (auto) 0.4 %; Platelet Count 165 K/uL (130-400); RDW Standard Deviation 42.7 fL (36.4-46.3); Red Blood Count 3.28 M/uL (4.20-5.40); White Blood Count 9.82 K/ul (4.8-10.8)
[2023-01-28 05:53] LABS: Alanine Aminotransferase 305 U/L (7-52); Albumin Globulin Ratio 1.2 (0.9-2); Albumin Level 2.9 gm/dl (3.4-5.0); Alkaline Phosphatase 83 U/L (34-104); Anion Gap 6 (3-11); Aspartate Aminotransferase 207 U/L (13-39); BUN Creatinine Ratio 6.7 (10-20); Bilirubin,Total 1.3 mg/dl (0.2-1.0); Blood Urea Nitrogen 3 mg/dl (6-23); Calcium 8.1 mg/dl (8.6-10.3); Carbon Dioxide 28 mmol/L (21-32); Chloride 107 mmol/L (98-107); Est GFR (African American) > 150.0 ml/min; Est GFR (Non-African American) 129.8 ml/min; Globulin 2.5 gm/dl (2.5-4.0); Glucose 96 mg/dl (70-99(Fasting)); Magnesium 1.7 mg/dl (1.7-2.4); Phosphorus 3.6 mg/dl (2.5-4.9); Sodium 141 mmol/L (136-145); Total Protein 5.4 gm/dl (6.0-8.3)
[2023-01-28 07:46] LABS: ALC (manual) 5.79 K/uL (1.2-3.4); ANC (manual) 1.77 K/uL (1.4-6.5); Basophils # (manual) 0.29 K/uL (0-0.2); Basophils % (manual) 3 %; Eosinophils # (manual) 1.28 K/uL (0-0.50); Eosinophils % (manual) 13 %; Lymphocytes # (manual) 3.83 K/uL (1.2-3.4); Lymphocytes % (manual) 39 %; Metamyelocytes % (manual) 1 %; Monocytes # (manual) 0.49 K/uL (0.11-0.59); Monocytes % (manual) 5 %; Myelocytes % (manual) 1 %; Neutrophils # (manual) 1.77 K/uL (1.40-6.50); Neutrophils % (manual) 18 %; Polychromasia 1+; Reactive Lymphocytes # (manual) 1.96 K/uL; Reactive Lymphocytes % (manual) 20 %
[2023-01-28] MEDS: SERTRALINE HCL 50 MG TABLET PO SCH (08:36)
[2023-01-28] MEDS: CALCIUM CITRATE 950 MG TAB PO SCH ×3 (08:37→18:14)
[2023-01-28] MEDS: HEPARIN SOD 5,000 UNIT/0.5 ML VIAL SQ SCH (08:37)
[2023-01-28] MEDS: methylPREDNISolone 80 MG in SYRINGE 0 ML IV SCH (08:38)
[2023-01-28] MEDS: POT PHOSPHATE MONOBASIC W/ SOD TAB PO SCH ×3 (08:38→18:14)
[2023-01-28] MEDS ORDERED: POTASSIUM CHLORIDE 20 MEQ/15 ML UDC PO STA (09:06)
[2023-01-28] MEDS ORDERED: STAT IV/IM STA (09:08)
[2023-01-28] MEDS ORDERED: MAGNESIUM CHLORIDE W/CALCIUM 64MG DELAYED REL TAB PO SCH (09:15)
[2023-01-28] MEDS ORDERED: OPTIRAY 320 500ml IV ONE (10:43)
[2023-01-28] MEDS: CALCIUM GLUCONATE 10% 1,000 MG in SODIUM CHLOR 0.9% MINI-B 50 ML IV SCH ×2 (10:48→11:04)
--- NOTE | 2023-01-28 10:57 | CT Scan Report ---
ABDOMEN AND PELVIS CT WITH IV CONTRAST CT DOSE: 838.9 mGy.cm HISTORY: elevated liver enzymes TECHNIQUE: Multiaxial CT images of the abdomen and pelvis were performed following the use of intrave nous contrast. A dose lowering technique was utilized adhering to the principles of ALARA. COMPARISON STUDY: None. FINDINGS: The lung bases are clear. No pneumoperitoneum. No pneumatosis. No acute fractures identifie d. Mild body wall edema is noted. There is mild bilateral inguinal lymphadenopathy with the largest o n the left measuring 16 x 12 mm. A few scattered hypodense lesions within the liver with the largest in the right hepatic lobe measuring 13 mm. These favor cysts. Otherwise, the liver enhances normally. The main portal vein is patent. Severe gallbladder wall edema/thickening. No gallstones identified. Mild periportal lymphadenopathy with the dominant periportal lymph node measuring 19 x 10 mm. The spl een, adrenal glands, and pancreas unremarkable. The kidneys enhance normally. Normal caliber abdomina l aorta. No retroperitoneal or pelvic lymphadenopathy. The bladder is decompressed. This may account for the bladder wall thickening. A few uterine masses with the largest measuring 5.3 cm. These favor fibroids. The ovaries are within normal limits. Small amount of pelvic ascites is noted. No bowel wal l thickening or obstruction. Normal appendix. IMPRESSION: 1. No bowel wall thickening or obstruction. 2. Mild body wall edema and a small amount of ascites. 3. Marked gallbladder wall edema/thickening. No gallstones identified. This is likely due to the sofy ent's diffuse edematous state or underlying hepatic pathology. Acute cholecystitis is considered less likely but not entirely excluded. HIDA scan can be performed for further evaluation if clinically wa rranted. 4. Mild periportal lymphadenopathy. This could be reactive. 5. Mild inguinal lymphadenopathy. 6. Uterine fibroids. 7. Mild bladder wall thickening which could be due to underdistention. Recommend correlation with uri nalysis to exclude a cystitis. ACT 112: Negative or not required by law. Electronically signed by: Dedrick Hernandez M.D. 01/28/2023 10:55 AM
--- NOTE | 2023-01-28 14:09 | Gastrointestinal Consultation ---
Date of Consultation January 28, 2023 Assessment & Plan (1) Rash: (2) Adverse reaction to drug: (3) Elevated liver enzymes: Acute liver injury most likely drug induced, as this can be seen with Lamictal therapy Will need to monitor liver panel over the next 8 weeks to ensure they return to normal completely If Liver panel remains elevated beyond 8 weeks, will need workup for chronic liver disease. Will check Hep A, B, and C serologies now History of Present Illness Reason for Consultation: Elevated LFT's Attending Physician: Nga Amato MD History of Present Illness Jaron Meek is a pleasant 37 yo female who presented to the hospital initially on 01/20/23 following initiation of Lamictal therapy the previous month, with new onset rash. She was also noted to have elevations of her liver panel. She was given benadryl therapy, but subsequently returned to the ER on 01/24/23 with worsening rash, and was subsequently admitted. She has had persistently elevated AST, ALT, however, her Total Bili was normal until this AM's labs showed a slight elevation to 1.3. She did undergo a RUQ US which showed Gall bladder wall thickening but no biliary ductal dilation. She has been on steroid therapy during this hospitalization. At present she states that she is feeling much better. She denies any history of liver abnormalities, denies alcohol use, denies Hep C risk factors, and has no family history of liver problems. She denies any fevers, chills, nausea, vomiting, diarrhea, hematemesis, melena, or hematochezia. She has no further complaints. Allergies Allergy/AdvReac Type Severity Reaction Status Date / Time lamotrigine [From Lamictal] Allergy DRESS Verified 01/26/23 10:16 Home Medications Medication Instructions Recorded Confirmed Type lamotrigine 100 mg tablet 100 mg PO QAM 01/24/23 01/24/23 History quetiapine 25 mg tablet 25 mg PO HS 01/24/23 01/24/23 History sertraline 50 mg tablet 50 mg PO QAM 01/24/23 01/24/23 History Patient History Social History Smoking Status: Former smoker Hx Alcohol Use: No Hx Substance Use: No Preferred Language: Urdu Communication Ability: Effective Beliefs That Will Affect Care: None Current Living Situation: Alone Other Information That Helps Us Care for You: No Feels Safe at Home: Yes Safety Concerns: Feels Safe At This Time Assistive Devices: Apnea Monitor Review of Systems Review of Systems: All systems reviewed & are unremarkable except as noted in Subjective Physical Exam Constitutional: WD/WN, vitals as above Respiratory: normal respiratory effort, lungs clear to auscultation Cardiovascular: RRR, no murmur, no edema Gastrointestinal (Abdomen): normal bowel sounds, soft, nontender, no hepatosplenomegaly Skin: Extensive skin rash noted Results & Data Vital Signs (Past 12 Hours) Vital Signs Temp Pulse Pulse Resp BP Pulse Ox O2 Del Method 01/28/23 11:35 36.7 C 66 18 138/87 97 Room Air 01/28/23 10:00 88 01/28/23 08:00 36.8 C 81 18 113/72 97 Room Air 01/28/23 03:09 70 01/28/23 02:55 36.7 C 74 18 122/75 97 Room Air PG Care Time/CCT Total # of Minutes Spent Total Time Spent with Patient: Total time spent is greater than 50% in coordination of care (as documented) at patient's floor/unit and/or counseling patient: Coding Level of Care Code 73685 IN/OBS CONSULT LVL 4,60M Diagnoses Rash R21 Adverse reaction to drug T50.905D Encounter type: subsequent encounter Elevated liver enzymes R74.8 (2) Adverse reaction to drug Encounter type: subsequent encounter Qualified Code(s): T50.905D - Adverse effect of unspecified drugs, medicaments and biological substances, subsequent encounter
[2023-01-28 15:51] LABS: BUN Creatinine Ratio 5.3 (10-20); Calcium 9.1 mg/dl (8.6-10.3); Creatinine Clr Calc Pharmacy 155.5 ml/min; Est GFR (African American) 139.2 ml/min; Est GFR (Non-African American) 120.1 ml/min; Magnesium 1.7 mg/dl (1.7-2.4); Phosphorus 4.1 mg/dl (2.5-4.9); Potassium 3.6 mmol/L (3.5-5.1); Troponin I High Sensitivity 5.2 pg/ml (0-14)
--- NOTE | 2023-01-28 16:11 | Discharge Summary ---
Discharge Summary Date of Service January 28, 2023 Admission HPI Per Admitting Provider 37-year-old female past med significant for bipolar 2 disorder, general anxiety disorder, PTSD, presents with diffuse skin rash. Patient states after starting Lamictal 1 month later developed rash and she stopped Lamictal about a week ago. Patient was in the ER on January 20 and was advised to take Benadryl. But the rash is getting progressively worse. Her mouth canker ulcer resolved but she is having some painful swallowing now and because of difficulty swallowing she is not eating or drinking much. And now she has some edema in the hands. The rash is erythematous and blanching involving most of the body. Yesterday morning when she got up she felt dizzy and when she went to bathroom she passed out for a second did not eat her head and and it seemed to happen again today morning but this time she did not pass out .She is feeling little short of breath, no chest pain ,no nausea, no vomiting.She has pain in her arms and abdomen where there is is swelling. feeling hot where there is swelling.Urine is concentrated .Denies any headaches.Systolic Blood pressure was in the 80s when she came in and with the fluids blood pressure improved. Past medical history. As mentioned above Past surgical history. No surgical history on file Social history. No smoking. Alcohol socially. Medical marijuana. Family history. Mother has diabetes. Father has diabetes. Paternal grandmother had diabetes. Principal Dx & Hospital Course #1 = Principal Diagnosis (1) Adverse reaction to dru-year-old female past med significant for bipolar 2 disorder, general anxiety disorder, PTSD, presents with diffuse skin rash. Patient states after starting Lamictal 1 month later developed rash and she stopped Lamictal about a week ago. Progressive rash suggestive of DRESS. Adverse reaction to drug DRESS Diffuse erythematous blanching rash involving most of the body Most likely from Lamictal Dermatology recommended slow taper of prednisone starting at 80 mg over 3 weeks. 01/27- Dermatology contacted once more. Spoke to Dr. Savage. -Recommended the steroid taper previously advised, noted it can actually take months of treatment sometimes for DRESS to resolve. -Advised to keep an eye on the other organ systems- thyroid with TSH, cardiac with EKGs, Liver and kidney function tests -And to follow with PCP to check TSH in 1 to 2 months. 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 Consult cardiology- appreciate recs History of bipolar 2 disorder Generalized anxiety disorder PTSD Currently taking only Zoloft 25 mg daily which was restarted per pt request Diet: soft bite sized DVT prophylaxis heparin subcu Disposition: home once rash resolves/improving Updated Medication List Medication Instructions Recorded Confirmed Type lamotrigine 100 mg tablet 100 mg PO QAM 01/24/23 01/24/23 History quetiapine 25 mg tablet 25 mg PO HS 01/24/23 01/24/23 History sertraline 50 mg tablet 50 mg PO QAM 01/24/23 01/24/23 History prednisolone sodium phosphate 10 See Rx Instructions .Route 01/28/23 Rx mg disintegrating tablet .COMPLEX #224 tabs sertraline 25 mg tablet 25 mg PO DAILY #30 tabs 01/28/23 Rx Hospital Stay Data Consultations 01/24/23 22:10 ED Decision to Admit Stat 01/25/23 08:00 Consult Cardiology Routine 01/28/23 09:12 Consult Gastroenterology Routine Diagnostic Imagining Performed 01/25/23 02:10 US liver Routine 01/28/23 09:11 CT abd pelvis IV con only Urgent Pending Results Patient Have Any Pending Studies at Discharge: No Discharge Instructions Given to Patient (Per Discharging Provider) Jaron, You were admitted with concern that you had a reaction to the medication Lamictal that you were on previously. The syndrome is called DRESS (Drug reaction with eosinophilia and systemic symptoms). We are treating you with very high dose steroids and discharging you home with the oral version via a taper. We will decrease the dose by 10mg every 7 days, with a decrease by 5mg at the end. This is all written out for you on the prescription. We ask that you keep close follow up with your primary care provider and Dermatology after discharge. This is very important as close monitoring
[2023-01-28 18:46] LABS: Appearance Urine Clear (Clear); Bacteria Urine Automated Negative (Negative); Bilirubin Urine Negative (Negative); Blood Urine 2+ (Negative); Cast Urine Automated 0 /lpf (0-5); Color Urine Yellow; Glucose Urine UA Negative (Negative); Ketones Urine Negative (Negative); Leukocyte Esterase Urine Negative (Negative); Nitrite Urine Negative (Negative); Protein Urine Negative (Negative); Urobilinogen Urine Positive (Negative)
[2023-01-28] MEDS ORDERED: POTASSIUM CHLORIDE 20 MEQ/15 ML UDC PO SCH (21:00)
--- NOTE | 2023-01-29 19:11 | Electrocardiogram Report ---
Test Reason : Blood Pressure : / mmHG Vent. Rate : 078 BPM Atrial Rate : 078 BPM P-R Int : 150 ms QRS Dur : 084 ms QT Int : 398 ms P-R-T Axes : 050 043 032 degrees QTc Int : 453 ms Normal sinus rhythm Normal ECG When compared with ECG of 26-JAN-2023 06:25, No significant change was found Confirmed by Adis Zamora ([id number]) on 01/29/2023 7:11:26 PM Referred By: REFERRED SELF Confirmed By:Adis Zamora
--- NOTE | 2023-01-29 22:18 | Electrocardiogram Report ---
Test Reason : Blood Pressure : / mmHG Vent. Rate : 069 BPM Atrial Rate : 069 BPM P-R Int : 142 ms QRS Dur : 076 ms QT Int : 386 ms P-R-T Axes : 040 042 035 degrees QTc Int : 413 ms Normal sinus rhythm with sinus arrhythmia Normal ECG When compared with ECG of 27-JAN-2023 05:51, No significant change was found Confirmed by Adis Zamora ([id number]) on 01/29/2023 10:17:49 PM Referred By: REFERRED SELF Confirmed By:Adis Zamora
[2023-01-30 12:02] LABS: HBSAG NON-REACTIVE (NON-REACTIVE); Hepatitis A Antibody IgM NON-REACTIVE (NON-REACTIVE); Hepatitis B Core Antibody IgM NON-REACTIVE (NON-REACTIVE)
== END 2023-01-28 18:42 | disposition home or self-care (01) ==
LOC: ED 17:27 → 4W 01-25 00:38 → INTOOBSV 01-25 00:38 → 4W 01-25 01:31